=== PATIENT | female | born 1985 | race Caucasian/White ===

== ENCOUNTER 2018-10-19 00:27 | Emergency (ER) | payer MEDICAID ==
[~2018-10-19] VITALS: Ht 157.5 cm; Wt 49.1 kg
[2018-10-19 00:35] VITALS: BP 152/100
[2018-10-19] MEDS ORDERED: ibuprofen tablet 400 MG TABLET PO ONE (01:10)
[2018-10-19] MEDS ORDERED: IBUP-1984 PO (01:34)
== END 2018-10-19 01:42 | disposition home or self-care (01) ==
LOC: ER 00:28
DX: S20.212A Contusion of left front wall of thorax, initial encounter (principal); M54.2 Cervicalgia; Z88.8 Allergy status to other drugs, medicaments and biological substances; Y04.8XXA Assault by other bodily force, initial encounter; Y93.89 Activity, other specified; Y92.89 Other specified places as the place of occurrence of the external cause; Y99.8 Other external cause status
CPT/HCPCS: 71046; 99283

== ENCOUNTER 2019-04-19 18:43 | Emergency (ER) | payer MEDICAID ==
[~2019-04-19] VITALS: Ht 160 cm; Wt 46.0 kg
--- NOTE | 2019-04-19 19:17 | NUR ---
PT WAS ABRUPT WITH LAB BUT SPOUSE TALKED HER INTO HAVING A DRAW. SHE LAYS ON THE GURNEY, EYES CLOSED. PERRL 5MM. RIGHT EYE A LITTLE PUFFY WITH PURPLE BRUISING A TINY BIT, FROM A FALL 2 WEEKS AGO WHILE DANCING. SPOUSE STATES SHE 'ACTED NORMAL MOMMY STUFF UNTIL TODAY.' HE STATES SHE HAS 'KIDNEY AND URINE ISSUES FOR AWHILE' 'I WENT OUT TO BUY AZO AND CRANBERRY STUFF, NATURAL THINGS AND WHEN I CAME BACK SHE WAS ACTING LIKE THIS.' 'SHE IS WITH HER BROTHER, THEY WERE DRINKING, I REALLY THINK SHE JUST DRANK TOO MUCH, BUT I DONT KNOW.'
--- NOTE | 2019-04-19 19:29 | NUR ---
SPOUSE TAKING THE PATIENT UP TO THE BR NOW AND UA CUP GIVEN.
[2019-04-19 19:39] LABS: BASOPHILS % (AUTO) 0.7 % (0-1); EOSINOPHILS % (AUTO) 0.3 % (0-6); HEMATOCRIT 39.7 % (35.0-45.0); HEMOGLOBIN 13.4 g/dl (12.0-16.0); LYMPHOCYTES # (AUTO) 0.9 X10'3 (1.1-4.8); LYMPHOCYTES % (AUTO) 17.4 % (21-51); MEAN CORPUSCULAR HEMOGLOBIN 32.7 PG (27.0-31.0); MEAN CORPUSCULAR HGB CONC 33.7 g/dL (33.0-36.5); MEAN CORPUSCULAR VOLUME 96.9 FL (78-98); MEAN PLATELET VOLUME 8.2 FL (7.4-10.4); MONOCYTES # (AUTO) 0.2 X10'3 (0-0.9); MONOCYTES % (AUTO) 3.9 % (2-12); NEUTROPHILS # (AUTO) 4.1 X10'3 (1.8-7.7); NEUTROPHILS % (AUTO) 77.7 % (42-75); PLATELET COUNT 56 X10'3 (140-440); RED CELL DISTRIBUTION WIDTH 16.8 % (11.5-14.5); WHITE BLOOD COUNT 5.2 X10'3 (4.5-11.0)
[2019-04-19 19:51] LABS: ALANINE AMINOTRANSFERASE 77 U/L (12-78); ALBUMIN 3.8 G/DL (3.4-5.0); ALKALINE PHOSPHATASE 79 IU/L (46-116); ANION GAP 18 (8-16); ASPARTATE AMINO TRANSFERASE 150 U/L (10-37); BILIRUBIN,TOTAL 0.7 MG/DL (0.1-1.0); BLOOD UREA NITROGEN 9 MG/DL (7-18); BUN/CREATININE RATIO 16.7 (6.6-38.0); CALCIUM 8.3 MG/DL (8.5-10.1); CHLORIDE 103 MMOL/L (99-107); CREATININE 0.54 MG/DL (0.40-0.90); GLUCOSE 80 MG/DL (70-104); POTASSIUM 3.3 MMOL/L (3.5-5.1); SODIUM 145 MMOL/L (135-145); TOTAL CARBON DIOXIDE 23.7 MMOL/L (24-32); TOTAL PROTEIN 7.5 G/DL (6.4-8.2); eGFR > 90 ML/MIN
[2019-04-19 19:55] LABS: ETHANOL 0.314 GM/DL (0.0-0.010)
[2019-04-19 20:01] LABS: CLARITY,URINE CLOUDY (Clear); COLOR,URINE YELLOW (Yellow); GLUCOSE, URINE NEGATIVE (Neg); KETONES,URINE 15 mg/dl (Neg); LEUKOCYTE ESTERASE ,URINE SMALL (Neg); NITRITES, URINE POSITIVE (Neg); OCCULT BLOOD,URINE MODERATE (Neg); PH,URINE 5.5 (4.8-8.0); PROTEIN,URINE 100 mg/dl (Neg)
[2019-04-19 20:02] LABS: URINE HCG NEGATIVE (NEG)
[2019-04-19 20:04] LABS: UA COLLECTION TYPE CLN CATCH MIDSTREAM
[2019-04-19 20:05] LABS: BACTERIA,URINE 1+ /HPF (Neg); SQUAMOUS EPITHELIAL CELL,UR FEW /LPF (FEW); WBC CLUMPS,URINE FEW /HPF (NEGATIVE); WBC,URINE 30-50 /HPF (0-4)
[2019-04-19] MEDS ORDERED: CefTRIAXone 2gm/D5W 50ml 50 ML IV ONE (20:20)
[2019-04-19] MEDS ORDERED: ondansetron/PF 4mg/2ml inj IV ONE (20:20)
[2019-04-19] MEDS ORDERED: normal saline 1000ML IV soln IVB ONE (20:20)
[2019-04-19] MEDS ORDERED: ketorolac trometh. 30mg/ml inj. IV ONE (20:55)
[2019-04-19] MEDS ORDERED: acetaminophen 325mg tablet PO ONE (20:55)
[2019-04-19] MEDS ORDERED: CIPR-230 PO (21:01)
[2019-04-19 22:14] VITALS: BP 107/62
== END 2019-04-19 22:16 | disposition home or self-care (01) ==
LOC: ER 18:44
DX: S05.11XA Contusion of eyeball and orbital tissues, right eye, initial encounter (principal); F10.929 Alcohol use, unspecified with intoxication, unspecified; N39.0 Urinary tract infection, site not specified; M54.9 Dorsalgia, unspecified; Z88.8 Allergy status to other drugs, medicaments and biological substances; Z79.899 Other long term (current) drug therapy; Y90.9 Presence of alcohol in blood, level not specified; X58.XXXA Exposure to other specified factors, initial encounter; Y93.89 Activity, other specified; Y92.89 Other specified places as the place of occurrence of the external cause; Y99.8 Other external cause status
CPT/HCPCS: 36415; 70450; 80053; 80320; 81001; 81025; 85025; 85610; 87088; 87186; 96365; 96375; 99284; J0696; J1885; J2405; J7030; 87077

== ENCOUNTER 2019-06-10 05:57 | Emergency (ER) | payer MEDICAID ==
[~2019-06-10] VITALS: Ht 157.5 cm; Wt 47.0 kg
[2019-06-10] MEDS ORDERED: CHLO25CA10 PO (06:34)
[2019-06-10 06:36] VITALS: BP 117/72
== END 2019-06-10 06:40 | disposition home or self-care (01) ==
LOC: ER 05:57
DX: F10.10 Alcohol abuse, uncomplicated (principal); Z02.89 Encounter for other administrative examinations; M19.90 Unspecified osteoarthritis, unspecified site; F17.200 Nicotine dependence, unspecified, uncomplicated; Z88.8 Allergy status to other drugs, medicaments and biological substances; Z79.899 Other long term (current) drug therapy
CPT/HCPCS: 99283

== ENCOUNTER 2019-12-15 17:45 | Emergency (ER) | payer MEDICAID, OTHER ==
[~2019-12-15] VITALS: Ht 157.5 cm; Wt 50.4 kg
[~2019-12-15 17:45] MED LIST: CHLO25CA10 PO
[2019-12-15 18:23] VITALS: BP 136/90
[2019-12-15 18:55] LABS: EOSINOPHILS % (AUTO) 0.5 % (0-6); HEMOGLOBIN 14.6 g/dl (12.0-16.0); MONOCYTES # (AUTO) 0.2 X10'3 (0-0.9)
[2019-12-15 18:57] LABS: BASOPHILS # (AUTO) 0.1 X10'3 (0-0.2); BASOPHILS % (AUTO) 1.2 % (0-1); HEMATOCRIT 42.3 % (35.0-45.0); LYMPHOCYTES % (AUTO) 60.5 % (21-51); MEAN CORPUSCULAR HEMOGLOBIN 33.7 PG (27.0-31.0); MEAN CORPUSCULAR HGB CONC 34.4 g/dL (33.0-36.5); MEAN CORPUSCULAR VOLUME 97.8 FL (78-98); MEAN PLATELET VOLUME 8.1 FL (7.4-10.4); NEUTROPHILS # (AUTO) 1.7 X10'3 (1.8-7.7); NEUTROPHILS % (AUTO) 34.8 % (42-75); PLATELET COUNT 117 X10'3 (140-440); RED BLOOD COUNT 4.32 X10'6 (4.20-5.60)
[2019-12-15 19:15] LABS: ALANINE AMINOTRANSFERASE 97 U/L (12-78); ALBUMIN 4.4 G/DL (3.4-5.0); ALBUMIN/GLOBULIN RATIO 1.2 (1.1-1.5); ALKALINE PHOSPHATASE 100 IU/L (46-116); ANION GAP 14 (8-16); ASPARTATE AMINO TRANSFERASE 252 U/L (10-37); BILIRUBIN,TOTAL 0.4 MG/DL (0.1-1.0); BLOOD UREA NITROGEN 7 MG/DL (7-18); CALCIUM 8.2 MG/DL (8.5-10.1); CHLORIDE 106 MMOL/L (99-107); CREATININE 0.88 MG/DL (0.40-0.90); GLUCOSE 120 MG/DL (70-104); POTASSIUM 3.4 MMOL/L (3.5-5.1); SODIUM 146 MMOL/L (135-145); eGFR 74 ML/MIN
[2019-12-15 22:20] LABS: TOTAL CELLS COUNTED 100
[2019-12-15 22:25] LABS: PLATELET ESTIMATE DECREASED
== END 2019-12-15 22:45 | disposition left against medical advice (07) ==
LOC: ER 17:46
DX: R07.89 Other chest pain (principal); R42 Dizziness and giddiness; Z53.21 Procedure and treatment not carried out due to patient leaving prior to being seen by health care provider
CPT/HCPCS: 36415; 71045; 80053; 84484; 85025; 93005

== ENCOUNTER 2022-08-27 01:26 | Emergency (ER) | payer MEDICAID ==
[~2022-08-27] VITALS: Ht 157.5 cm; Wt 55.0 kg
[2022-08-27 01:31] VITALS: BP 111/78
== END 2022-08-27 02:41 ==
LOC: ER 01:26
DX: Z33.1 Pregnant state, incidental (principal); Z3A.14 14 weeks gestation of pregnancy; J45.909 Unspecified asthma, uncomplicated; F17.200 Nicotine dependence, unspecified, uncomplicated; F15.20 Other stimulant dependence, uncomplicated; Z88.8 Allergy status to other drugs, medicaments and biological substances
CPT/HCPCS: 99284

== ENCOUNTER 2023-05-14 04:46 | Emergency (ER) | payer OTHER, MEDICAID ==
[~2023-05-14] VITALS: Ht 157.5 cm; Wt 50.0 kg
--- NOTE | 2023-05-14 04:58 | NUR ---
one safe place notified(federica).
[2023-05-14] MEDS ORDERED: CefTRIAXone 500MG IM Kit w/LIDOcaine (for pt below or = to 150kg) IM ONE (05:25)
[2023-05-14] MEDS: LEVONORGESTREL 1.5MG tablet 1.5 MG TABLET PO ONE ×2 (05:25→07:14)
[2023-05-14] MEDS ORDERED: azithromycin 250mg tablet PO ONE (05:25)
[2023-05-14] MEDS ORDERED: TINIDAZOLE 500 MG TABLET PO ONE (05:25)
[2023-05-14 08:38] LABS: URINE HCG NEGATIVE (NEG)
[2023-05-14 10:34] VITALS: BP 106/74
== END 2023-05-14 09:15 | disposition home or self-care (01) ==
LOC: ER 04:46 → EEVIPCON 04:46 → ER 09:15
DX: T76.21XA Adult sexual abuse, suspected, initial encounter (principal); M25.532 Pain in left wrist; M25.511 Pain in right shoulder; W19.XXXA Unspecified fall, initial encounter; Y93.89 Activity, other specified; Y92.89 Other specified places as the place of occurrence of the external cause; Y99.8 Other external cause status
CPT/HCPCS: 81025; 96372; 99284; J0696; 99283

== ENCOUNTER 2023-07-25 21:48 | Emergency (ER) | payer MEDICAID, OTHER ==
[~2023-07-25] VITALS: Ht 157.5 cm; Wt 44.0 kg
[2023-07-25 22:04] VITALS: BP 115/78; TEMP 98.4
[2023-07-25] MEDS ORDERED: ketorolac tromethamine 15mg/ml inj. IM ONE (22:45)
[2023-07-25] MEDS ORDERED: CEPH-585 PO (22:48)
[2023-07-25 23:07] VITALS: PULSE 100; RESP 18; O2SAT 100
--- NOTE | 2023-07-25 23:23 | NUR ---
PT HAS NO RIDE HOME, CALLED [facility], ETA IS 1 1/2 TO 2 HOURS
== END 2023-07-25 23:08 | disposition home or self-care (01) ==
LOC: ER 21:55
DX: L03.115 Cellulitis of right lower limb (principal); L03.116 Cellulitis of left lower limb; J45.909 Unspecified asthma, uncomplicated; F15.10 Other stimulant abuse, uncomplicated; Z88.8 Allergy status to other drugs, medicaments and biological substances; Z79.899 Other long term (current) drug therapy
CPT/HCPCS: 96372; 99283; J1885